=== PATIENT | female | born 1970 | race Caucasian/White ===

== ENCOUNTER 2020-09-27 07:15 | Day surgery (SDC) | payer OTHER ==
[~2020-09-27] VITALS: Ht 162.6 cm; Wt 96.3 kg
[~2020-09-27 07:15] MED LIST: ALPR1 PO; APTENSIO; CRINONE1.125 GM; ESCI10; ESTR25VT; Fish Oil 10001000 MG; GABA300; HYDR1TAB94; Hydroxyzine HCl50 MG; KETO10; MECL12.5; NITR100CA; OXYACE5T PO; PHENAZOPYRIDINE 95 MG; PROACE100; VAGIFEM10 MCG
[2020-09-27] MEDS ORDERED: Aspir 8181 MG (07:27)
--- NOTE | 2020-09-27 08:28 | NUR ---
09/27/20 0828 Maliha Guevara CHRONIC PAIN HAS MS.
--- NOTE | 2020-09-27 14:30 | NUR ---
09/27/20 1430 Maliha Guevara S PT. WITH STRIDOR SOUNDS DURING UPPER ENDO & COLONSCOPY. PT. PROBABLY GOT SOME SECRETIONS ON VOCAL CORDS DURING UPPER. JAW THRUST PERFORMED & ORDER FOR 30MG IV LIDOCAINE TO BE GIVEN PER DR. VERNON ORDER. PT. CONTINUED WITH STRIDOR SOUNGS DURING COLONOSCOPY, PT. SUCTIONED FOR SMALL AMT. CLEAR SECRETIONS & WOKE UP RIGHT WHEN YAUNKER WAS PLACED IN MOUTH. PT. WAS GIVEN MORE PROPOFOL TO PUT HER BACK TO SLEEP. JAW THRUST WAS PERFORMED OFF & ON DURING PROCEDURE. DR. VERNON THEN ASKED THAT NO MORE SEDATION TO BE GIVEN TO LET PT. WAKE UP SINCE HER ABD. WAS MOVING & HE WAS TRYING TO GET A POLYP OFF & GET A GOOD LOOK IN HER COLON. DR. VERNON QUESTIONING WHETHER PT. HAS SLEEP APNEA. PT AWAKE & WAS INSTRUCTED ON WHY SHE HAD TO WAKE UP. PT. VERBALIZES SHE SNORES AT HOME & SLEEPS IN A SEPARATE ROOM. PT. VERBALIZES WAKING UP MANY TIMES IN THE NIGHT THINKING SHE IS CHOKING. PT. INSTRUCTED SHE SHOULD GET A REFERRAL FROM HER PRIMARY CARE FOR A SLEEP STUDY & IF HER PCP WOULDN'T SHE COULD CALL DR. VERNON FOR ONE.
--- NOTE | 2020-09-27 14:34 | NUR ---
09/27/20 1434 Maliha Guevara PT. VERBALIZES HAVING A SHARP PAIN IN HER LOWER ABD. WHEN SHE COUGHED. PT. VERBALIZES IT IS OFF & ON. PT. INSTRUCTED THAT IT PROBABLY IS SOME GAS THAT SHE NEEDS TO PASS OR EVENTUALLY IT WILL ABSORB. PT. ALSO C/O IRRITATED SORE THROAT. PT. ALSO HAS A CAMACHO, PT. WANTED DIET PEPSI SO SHE COULD GET SOME CAFFEINE.
== END 2020-09-27 09:45 | disposition home or self-care (01) ==
LOC: ORSCSDS 07:15
PROVIDERS: Internal Medicine Gastroenterology
PROC: 0D758ZZ Dilation of Esophagus, Via Natural or Artificial Opening Endoscopic (ICD-10-PCS; principal; 2020-09-27 08:30)
PROC: 0DB68ZX Excision of Stomach, Via Natural or Artificial Opening Endoscopic, Diagnostic (ICD-10-PCS; principal; 2020-09-27 08:30)
PROC: 0DBH8ZX Excision of Cecum, Via Natural or Artificial Opening Endoscopic, Diagnostic (ICD-10-PCS; principal; 2020-09-27 08:30)
PROC: 0DBL8ZX Excision of Transverse Colon, Via Natural or Artificial Opening Endoscopic, Diagnostic (ICD-10-PCS; principal; 2020-09-27 08:30)
PROC: 0DBK8ZX Excision of Ascending Colon, Via Natural or Artificial Opening Endoscopic, Diagnostic (ICD-10-PCS; principal; 2020-09-27 08:30)
PROC: 0DB58ZX Excision of Esophagus, Via Natural or Artificial Opening Endoscopic, Diagnostic (ICD-10-PCS; principal; 2020-09-27 08:30)
DX: R13.10 Dysphagia, unspecified (principal); K44.9 Diaphragmatic hernia without obstruction or gangrene; K25.9 Gastric ulcer, unspecified as acute or chronic, without hemorrhage or perforation; K20.90 Esophagitis, unspecified without bleeding; D12.0 Benign neoplasm of cecum; D12.3 Benign neoplasm of transverse colon; K64.8 Other hemorrhoids; Z12.11 Encounter for screening for malignant neoplasm of colon; Z86.010 Personal history of colon polyps; Z80.0 Family history of malignant neoplasm of digestive organs; G35 Multiple sclerosis; Z79.899 Other long term (current) drug therapy; Z87.891 Personal history of nicotine dependence
CPT/HCPCS: 88305; 88342; J2704; J7120

== ENCOUNTER 2020-12-06 10:42 | Emergency (ER) | payer OTHER ==
[~2020-12-06] VITALS: Ht 162.6 cm; Wt 93.0 kg
[~2020-12-06 10:42] MED LIST changes: +Aspir 8181 MG
[2020-12-06] MEDS ORDERED: FISH OIL 1,2001 EAC4 PO (11:31)
[2020-12-06 14:19] LABS: BASOPHILS ABSOLUTE AUTO 0.03 K/mm3 (0.00-0.23); BASOPHILS PERCENT AUTO 0 % (0-2); EOSINOPHILS ABSOLUTE AUTO 0.09 K/mm3 (0.00-0.68); EOSINOPHILS PERCENT AUTO 1 % (0-6); Hematocrit 42.3 % (33.0-51.0); Hemoglobin 14.5 g/dL (11.5-16.0); IMMATURE GRAN ABSOLUTE AUTO 0.05 K/mm3 (0.00-0.10); IMMATURE GRAN PERCENT AUTO 1 % (0-1); LYMPHOCYTES ABSOLUTE AUTO 2.29 K/mm3 (0.84-5.20); LYMPHOCYTES PERCENT AUTO 29 % (21-46); MONOCYTES ABSOLUTE AUTO 0.63 K/mm3 (0.16-1.47); MONOCYTES PERCENT AUTO 8 % (4-13); Mean Corpuscular HGB Conc 34.3 g/dL (31.5-36.5); Mean Corpuscular Volume 91 fL (80-100); Mean Platelet Volume 9.8 fL (9.1-12.4); NEUTROPHILS ABSOLUTE AUTO 4.72 K/mm3 (1.96-9.15); NEUTROPHILS PERCENT AUTO 60 % (41-73); Platelet Count 204 K/mm3 (150-400); RDW Coefficient Variation 12.7 % (11.7-14.2); RDW Standard Deviation 42.1 fL (35.1-46.3); Red Blood Cell Count 4.67 M/mm3 (3.80-5.20); White Blood Cell Count 7.81 K/mm3 (4.00-11.30)
[2020-12-06 14:47] LABS: Alanine Aminotransfer (ALT/SGP 174 U/L (12-78); Albumin, Blood 3.6 g/dL (3.4-5.0); Albumin/Globulin Ratio 0.9 (0.8-1.8); Alk Phos 95 U/L (50-136); Anion Gap 4 mmol/L (6-16); Aspartate Aminotrans (AST/SGOT 73 U/L (12-37); Bilirubin, Total 0.5 mg/dL (0.1-1.0); Blood Urea Nitrogen 13 mg/dL (8-24); Bun/Creatinine Ratio 18.1 (12.0-20.0); CO2, Blood 27 mmol/L (21-32); Calcium, Blood 9.2 mg/dL (8.5-10.1); Chloride, Blood 109 mmol/L (98-108); Creatinine, Blood 0.72 mg/dL (0.40-1.00); Globulin, Blood 3.9 g/dL (2.2-4.0); Glomerular Filtration Rate >60 (60-); Glucose, Blood 87 mg/dL (70-99); Potassium, Blood 3.8 mmol/L (3.5-5.5); Sodium, Blood 140 mmol/L (136-145); Total Protein, Blood 7.5 g/dL (6.4-8.2); Troponin I <0.015 ng/mL (0.000-0.040)
== END 2020-12-06 16:04 | disposition home or self-care (01) ==
LOC: ER 10:42
PROVIDERS: Emergency Medicine
DX: R07.9 Chest pain, unspecified (principal); R42 Dizziness and giddiness; E04.1 Nontoxic single thyroid nodule; R79.1 Abnormal coagulation profile; Z88.8 Allergy status to other drugs, medicaments and biological substances; Z88.2 Allergy status to sulfonamides; Z79.899 Other long term (current) drug therapy; Z79.82 Long term (current) use of aspirin; Z87.891 Personal history of nicotine dependence
CPT/HCPCS: 36415; 70470; 71260; 80053; 84484; 85025; 93005; 93010; 93971; 99284-25; Q9967